=== PATIENT | male | born 1985 | race African-American/Black ===

== ENCOUNTER 2021-08-22 21:56 | Emergency (ER) | payer OTHER ==
--- NOTE | 2021-08-22 22:29 | ED Physician Documentation ---
PD HPI FOCAL NEURO - Stated complaint Stated Complaint: LT SIDE BODY NUMBNESS - Chief complaint Chief Complaint: Neuro - History obtained from History obtained from: Patient - History of Present Illness Timing - onset: Other (episodic for 3 months but became constant for past 3 days) Timing - details: Still present in ED Numbness: Arm, Hand, Leg, Foot, Left Associated symptoms: Back pain. No: Headache, Nausea / vomiting, Seizure, Syncope, Fall, Head injury, Chest pain, Neck pain, Fever Baseline status: positive: A&OX3, ambulatory, indep Recently seen: Not recently seen - Additional information Additional information: c/o LUE and LLE paresthesias. the left leg paresthesias are circumferential from proximal lower leg to toes; the left arm paresthesias are along lateral aspect of the forearm to the left 3rd and 4th fingers. He says he has been having similar episodes over the past three months but they have been self-limited and thus he has not sought medical attention for this but presents tonight due to the symptoms being constant for past 3 days. Denies weakness, denies injury, denies headache. He also notes midline back pain , lower thoracic/upper lumbar area; the back pain has been waxing and waning x 3-4 days. He has had occasional low back pain in the past but he says the location of this back pain is not where he has had previous back pain. Review of Systems Constitutional: reports: Reviewed and negative Eyes: reports: Reviewed and negative Cardiac: reports: Reviewed and negative Respiratory: reports: Reviewed and negative GI: reports: Reviewed and negative : denies: Incontinent, Hematuria Musculoskeletal: reports: Back pain. denies: Neck pain, Extremity pain, Joint pain, Extremity swelling Neurologic: reports: Numbness. denies: Generalized weakness, Focal weakness, Confused, Altered mental status, Headache, Head injury PD PAST MEDICAL HISTORY - Past Medical History Past Medical History: No Neuro: Multiple sclerosis (mother) - Past Surgical History Past Surgical History: No - Present Medications Home Medications: Ambulatory Orders Medication Instructions Recorded Confirmed No Known Home Medications 10/13/13 10/13/13 - Allergies Allergies/Adverse Reactions: Allergies Allergy/AdvReac Type Severity Reaction Status Date / Time No Known Drug Allergies Allergy Verified 08/22/21 22:10 - Social History Does the pt smoke?: No Smoking Status: Never smoker Does the pt drink ETOH?: Yes Does the pt have substance abuse?: No - Immunizations Immunizations are current?: Yes - POLST Patient has POLST: No PD ED PE NORMAL - Vitals Vital signs reviewed: Yes - General General: Alert and oriented X 3, No acute distress, Well developed/nourished - HEENT HEENT: PERRL, EOMI - Cardiac Cardiac: RRR, No murmur - Respiratory Respiratory: No respiratory distress, Clear bilaterally - Abdomen Abdomen: Soft, Non tender - Back Back: No CVA TTP, No spinal TTP - Derm Derm: Normal color, Warm and dry - Extremities Extremities: No edema - Neuro Neuro: Alert and oriented X 3, 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, No motor deficit, Normal speech Results - Vitals Vitals: Oxygen O2 Source Room air - Labs Labs: Laboratory Tests 08/22/21 08/22/21 23:12 23:12 WBC 7.1 RBC 5.18 Hgb 16.1 Hct 47.1 MCV 90.9 MCH 31.1 H MCHC 34.2 RDW 12.1 Plt Count 253 MPV 10.5 Neut # (Auto) 3.1 Lymph # (Auto) 2.9 [place] # (Auto) 0.7 Eos # (Auto) 0.2 Baso # (Auto) 0.1 Absolute Nucleated RBC 0.00 Nucleated RBC % 0.0 Sodium 138 Potassium 3.8 Chloride 103 Carbon Dioxide 26 Anion Gap 9.0 BUN 21 H Creatinine 1.0 Estimated GFR (MDRD) 101 Glucose 107 H Calcium 9.0 Total Bilirubin 0.9 AST 17 ALT 16 Alkaline Phosphatase 63 Total Protein 7.4 Albumin 4.0 Globulin 3.4 Albumin/Globulin Ratio 1.2 Lipase 32 Departure - Departure Disposition: 01 Home, Self Care Clinical Impression: Paresthesia of left arm and leg Condition: Good Instructions: ED Paraesthesias Follow-Up: MARC SANTANA MD [Primary Care Provider] - Comments: The results of tonight's tests have no concerning nor diagnostic findings (blood tests, CT scans of head and neck). Follow up with your primary care provider; further tests might be needed, particularly if your symptoms persist. Discharge Date/Time: 08/23/21 01:51
[2021-08-22 23:19] LABS: BASOPHILS # (AUTO) 0.1 10^3/uL (0.0-0.1); BASOPHILS % (AUTO) 1.1 %; EOSINOPHILS # (AUTO) 0.2 10^3/uL (0.0-0.7); EOSINOPHILS % (AUTO) 3.1 %; HCT - HEMATOCRIT 47.1 % (42.0-52.0); HGB - HEMOGLOBIN 16.1 g/dL (14.0-18.0); LYMPHOCYTES # (AUTO) 2.9 10^3/uL (1.5-3.5); LYMPHOCYTES % (AUTO) 41.6 %; MEAN CORPUSCULAR HEMOGLOBIN 31.1 pg (27.0-31.0); MEAN CORPUSCULAR HGB CONC 34.2 g/dL (32.0-36.0); MEAN CORPUSCULAR VOLUME 90.9 fL (80.0-94.0); MEAN PLATELET VOLUME 10.5 fL (7.4-11.4); MONOCYTES # (AUTO) 0.7 10^3/uL (0.0-1.0); MONOCYTES % (AUTO) 10.4 %; NEUTROPHILS # (AUTO) 3.1 10^3/uL (1.5-6.6); NEUTROPHILS % (AUTO) 43.2 %; PLT - PLATELET COUNT 253 10^3/uL (130-450); RED BLOOD COUNT 5.18 10^6/uL (4.70-6.10); RED CELL DISTRIBUTION WIDTH 12.1 % (12.0-15.0); WHITE BLOOD COUNT 7.1 x10^3/uL (4.8-10.8)
[2021-08-22 23:34] LABS: ALBUMIN/GLOBULIN RATIO 1.2 (1.0-2.2); BILIRUBIN,TOTAL 0.9 mg/dL (0.2-1.0); POTASSIUM 3.8 mmol/L (3.5-5.0); TOTAL PROTEIN 7.4 g/dL (6.7-8.2)
[2021-08-22] MEDS ORDERED: IOPAMIDOL-300 100 ML VIAL ONE (23:41)
[2021-08-23] MEDS ORDERED: IOPAMIDOL-300 100 ML VIAL IVP ONE (00:02)
--- NOTE | 2021-08-23 00:34 | CT Report ---
PROCEDURE: ANGIO HEAD W/WO INDICATIONS: left sided numbness CONTRAST: IV CONTRAST: Isovue 300 ml: 100 PO CONTRAST: *NO PO CONTRAST TECHNIQUE: Precontrast 4.5 mm thick angled axial sections acquired from the foramen magnum to the vertex. Afte r the administration of intravenous contrast, 1 mm thick sections acquired through the [place] of [place] is. Postcontrast 4.5 mm thick sections then re-acquired from the foramen magnum to the vertex. 3-di mensional fardvcj-oufcnftuq-eatpftzhnt (MIP) and/or volume rendering reformats were acquired of the c entral intracranial vasculature. For radiation dose reduction, the following was used: automated ex posure control, adjustment of mA and/or kV according to patient size. COMPARISON: None. FINDINGS: Image quality: Excellent. Anterior circulation: Intracranial internal carotid arteries are normal in size and flow. The flow within the paired anterior cerebral arteries is normal and symmetric. The flow within the middle cer ebral arteries is normal and symmetric. The anterior communicating artery is seen. No aneurysms are seen. Posterior circulation: Visualized portions of the vertebral arteries demonstrate normal caliber, and join to form a normal appearing basilar artery. Flow within the posterior cerebral arteries is norm al and symmetric. No aneurysms are seen. CSF spaces: Ventricles are normal in size and shape. Basal cisterns are patent. No extra-axial flu id collections. Brain: No midline shift. No intracranial bleeds or masses. Millan-white matter interface appears int act. Skull and face: Calvarium and facial bones appear intact, without suspicious lesions. Sinuses: Visualized sinuses and mastoids are clear. IMPRESSION: No aneurysm or embolic disease found. Currently no visualized evidence of mass lesion or acute/subacu te stroke is found. Reviewed by: Artis Jama MD on 08/23/2021 12:36 AM PDT Approved by: Artis Jama MD on 08/23/2021 12:36 AM PDT Station ID: [id number]
--- NOTE | 2021-08-23 00:37 | CT Report ---
PROCEDURE: ANGIO NECK W INDICATIONS: left-sided paresthesias CONTRAST: IV CONTRAST: Isovue 300 ml: 100 PO CONTRAST: *NO PO CONTRAST TECHNIQUE: After the administration of intravenous contrast, 1.5 mm axial sections acquired from the aortic arch to the [place] of [place]. Coronal 3-D maximum intensity projection (MIP) and/or volume rendering ref ormats were then performed. For radiation dose reduction, the following was used: automated exposur e control, adjustment of mA and/or kV according to patient size. COMPARISON: CT angiogram of the head same day reviewed.. FINDINGS: Image quality: Excellent. Carotid system: The great vessels demonstrate a conventional anatomy as they arise from the aortic a rch. The origins of the common carotid arteries appear patent. The common carotid arteries demonstr ate normal calibers and courses. The bifurcation regions appear normal bilaterally. The internal ca rotid arteries demonstrate normal caliber and course. Posterior circulation: The origins of the vertebral arteries appear patent. The more superior porti ons of the vertebral arteries demonstrate normal course and caliber. They join to form a normal appe aring basilar artery. Soft tissues: Visualized neck soft tissues demonstrate no suspicious abnormalities. The thyroid is normal in size and there are no incidental findings. Bones: No suspicious bony lesions. Visualized cervical spine appears normally aligned. IMPRESSION: Through the neck from the aortic arch cephalad no area of aneurysm, dissection or embolic disease is found. No carotid stenosis is identified. The estimate of stenosis included in the report of the imaging study was calculated using the NASCET method CLINICAL RECOMMENDATION STATEMENTS: In patients <35 years with an ITN detected on CT, MRI, or extrathyroidal ultrasound, the Committee re commends further evaluation with dedicated thyroid ultrasound if the nodule is "e1 cm and has no susp icious imaging features, and if the patient has normal life expectancy. In patients "e35 years with an ITN detected on CT, MRI, or extrathyroidal ultrasound, the Committee r ecommends further evaluation with dedicated thyroid ultrasound if the nodule is "e1.5 cm and has no s uspicious imaging features, and if the patient has normal life expectancy. (ACR, 2014) Reviewed by: Artis Jama MD on 08/23/2021 12:39 AM PDT Approved by: Artis Jama MD on 08/23/2021 12:39 AM PDT Station ID: [id number]
[2021-08-23 01:51] VITALS: BP 140/99
--- NOTE | 2021-08-24 08:02 | ED Physician Documentation ---
History of Present Illness - Stated complaint Stated Complaint: LT SIDE BODY NUMBNESS - Chief complaint Chief Complaint: Neuro - History obtained from History obtained from: Patient - History of Present Illness Timing: Other (episodic x 3 months but constant x 3 days) Pain level max: 0 Pain level now: 0 Improved by: no ameliorating factors Worsened by: no exacerbating factors - Additonal information Additional information: c/o LUE and LLE paresthesias. the left leg paresthesias are circumferential from proximal lower leg to toes; the left arm paresthesias are along lateral aspect of the forearm to the left 3rd and 4th fingers. He says he has been having s imilar episodes over the past three months but they have been self-limited and thus he has not sought medical attention for this but presents tonight due to the symptoms being constant for past 3 days. Denies weakness, denies injury, denies headache. He also notes midline back pain , lower thoracic/upper lumbar area; the back pain has been waxing and waning x 3-4 days. He has had occasional low back pain in the past but he says the location of this back pain is not where he has had previous back pain. Review of Systems Constitutional: reports: Reviewed and negative Eyes: reports: Reviewed and negative Cardiac: reports: Reviewed and negative Respiratory: reports: Reviewed and negative GI: reports: Reviewed and negative : denies: Unable to Void, Incontinent, Hematuria Musculoskeletal: reports: Back pain. denies: Neck pain, Extremity pain, Joint pain, Extremity swelling, Joint swelling Neurologic: reports: Numbness. denies: Generalized weakness, Focal weakness, Difficulty speaking, Confused, Altered mental status, Headache, Head injury PD PAST MEDICAL HISTORY - Past Medical History Past Medical History: No - Past Surgical History Past Surgical History: No - Present Medications Home Medications: Ambulatory Orders Medication Instructions Recorded Confirmed No Known Home Medications 10/13/13 10/13/13 - Allergies Allergies/Adverse Reactions: Allergies Allergy/AdvReac Type Severity Reaction Status Date / Time No Known Drug Allergies Allergy Verified 08/22/21 22:10 - Social History Does the pt smoke?: No Smoking Status: Never smoker Does the pt drink ETOH?: Yes Does the pt have substance abuse?: No - Family History Family history: reports: Other (multiple sclerosis (mother)) - Immunizations Immunizations are current?: Yes - POLST Patient has POLST: No PD ED PE NORMAL - Vitals Vital signs reviewed: Yes - General General: Alert and oriented X 3, No acute distress, Well developed/nourished - HEENT HEENT: PERRL, EOMI - Neck Neck: Supple, no meningeal sign, No bony TTP - Cardiac Cardiac: RRR, No murmur - Respiratory Respiratory: No respiratory distress, Clear bilaterally - Abdomen Abdomen: Soft, Non tender - Back Back: No CVA TTP, No spinal TTP - Extremities Extremities: No edema - Neuro Neuro: Alert and oriented X 3, billing typist 2-12 intact, No motor deficit, Normal speech Eye Opening: Spontaneous Motor: Obeys Commands Verbal: Oriented GCS Score: 15 PD ED PE EXPANDED - Neuro Neuro: Normal motor (5/5 bilateral news photographer, flexion and extension (at elbows), bilateral plantar/dorsiflexion), Normal reflexes (2+/4 bilateral patellar DTR without clonus), Abnormal sensation (decreased light touch sensation LUE proximal forearm, predominantly radial aspect; he reports no noticeable difference in LTS right versus left legs/feet) Results - Vitals Vitals: Oxygen O2 Source Room air - Labs Labs: Laboratory Tests 08/22/21 08/22/21 23:12 23:12 WBC 7.1 RBC 5.18 Hgb 16.1 Hct 47.1 MCV 90.9 MCH 31.1 H MCHC 34.2 RDW 12.1 Plt Count 253 MPV 10.5 Neut # (Auto) 3.1 Lymph # (Auto) 2.9 [place] # (Auto) 0.7 Eos # (Auto) 0.2 Baso # (Auto) 0.1 Absolute Nucleated RBC 0.00 Nucleated RBC % 0.0 Sodium 138 Potassium 3.8 Chloride 103 Carbon Dioxide 26 Anion Gap 9.0 BUN 21 H Creatinine 1.0 Estimated GFR (MDRD) 101 Glucose 107 H Calcium 9.0 Total Bilirubin 0.9 AST 17 ALT 16 Alkaline Phosphatase 63 Total Protein 7.4 Albumin 4.0 Globulin 3.4 Albumin/Globulin Ratio 1.2 Lipase 32 - Rads (name of study) CTA head Radiology: Prelim report reviewed, See rad report CTA neck Radiology: Prelim report reviewed, See rad report PD MEDICAL DECISION MAKING - ED course Complexity details: reviewed results, re-evaluated patient, considered differential, d/w patient ED course: left arm and leg paresthesias, intermittent for months but constant x 3 days. Also has had 3 days of lower thoracic/upper lumbar back pain. no abnormalities on blood tests, CTA head and CTA neck. etiology of symptoms is not clear at this time. his back pain is likely incidental, given the involvement of the LUE. Given the lack of other symptoms / signs (such as weakness, fever, cranial nerve involvement), further testing can be considered in outpatient setting. Results d/w patient, advised to seek follow up with his primary care provider even if symptoms improve/resolve, and return precautions discussed. Departure - Departure Disposition: 01 Home, Self Care Clinical Impression: Paresthesia of left arm and leg Condition: Good Instructions: ED Paraesthesias Follow-Up: MARC SANTANA MD [Primary Care Provider] - Comments: The results of tonight's tests have no concerning nor diagnostic findings (blood tests, CT scans of head and neck). Follow up with your primary care provider; further tests might be needed, particularly if your symptoms persist. Discharge Date/Time: 08/23/21 01:51
== END 2021-08-23 01:51 | disposition home or self-care (01) ==
LOC: ED 21:56
DX: R20.2 Paresthesia of skin (principal); M54.6 Pain in thoracic spine
CPT/HCPCS: 36415; 70496; 70498; 80053; 83690; 85025; 99284; Q9967

== ENCOUNTER 2021-09-16 12:46 | Outpatient (CLI) | payer OTHER ==
--- NOTE | 2021-09-17 11:37 | MRI Report ---
PROCEDURE: Shoulder RT W/O INDICATIONS: SHOULDER PAIN TECHNIQUE: Noncontrast oblique coronal T2 fast spin echo with fat saturation, oblique sagittal T1 spin echo and T2 fast spin echo with fat saturation, axial T1 spin echo and T2 fast spin echo with fat saturation t hrough the shoulder. COMPARISON: None. FINDINGS: Image quality: Excellent. Rotator cuff: The supraspinatus, infraspinatus, and subscapularis tendons appear intact throughout. There is mild thickening of the supraspinatus and emphysematous tendons with increased internal signa l compatible with mild tendinosis. No rotator cuff muscle atrophy on sagittal images. Bones and bursae: No bone marrow contusions or fractures. No acromioclavicular joint degeneration. The acromion demonstrates conventional anatomy, without an os acromiale. Fluid noted in the subacrom ial/subdeltoid bursa compatible with mild bursitis. Capsule and soft tissues: In the absence of intra-articular contrast, the glenohumeral ligaments clara ear intact. There is undercutting the superior labrum which could be due to a foramen or superior lab ral tear. The long head of the biceps tendon demonstrates normal location and morphology. The rotato r interval appears normal, without fibrosis. The coracohumeral ligament is normal in thickness. IMPRESSION: Mild supraspinatus and infraspinous tendinopathy Mild subacromial/subdeltoid bursitis. Undercutting of the superior labrum which could be due to labral foramen or superior labral tear. Rec ommend correlation with clinical data. If there is clinical concern for labral tear, consider MRI of the shoulder with benefit of intra-articular gadolinium. Reviewed by: Luz Pace MD, PhD on 09/17/2021 11:36 AM PDT Approved by: Luz Pace MD, PhD on 09/17/2021 11:36 AM PDT Station ID: [id number]
== END 2021-09-16 12:47 | disposition home or self-care (01) ==
LOC: DI 12:46
PROVIDERS: ATTEND Student in an Organized Health Care Education/Training Program
DX: M75.51 Bursitis of right shoulder (principal); M75.91 Shoulder lesion, unspecified, right shoulder

== ENCOUNTER 2021-10-12 07:43 | Outpatient (CLI) | payer OTHER ==
--- NOTE | 2021-10-12 12:36 | MRI Report ---
PROCEDURE: MRI brain without contrast INDICATIONS: POLYNEUROPATHY TECHNIQUE: Noncontrast axial T1 spin echo, axial T2 fast spin echo, sagittal and axial FLAIR, coronal T2 fast sp in echo, axial gradient echo, axial diffusion and ADC through the brain. COMPARISON: None. FINDINGS: Image quality: Excellent. CSF Spaces: Basal cisterns are patent. No extra-axial fluid collections. Ventricles are normal in size and shape. Brain: No intracranial masses or hemorrhage. Millan/white matter interface is normal. Brainstem appe ars normal. Diffusion-weighted images demonstrate no acute ischemic insult. No chronic ischemic ins ults. Normal intravascular flow voids are present. Skull and face: Calvarium has normal marrow signal. Orbits appear normal. Sinuses: 1.5 cm left sphenoid sinus retention cyst. Otherwise, the sinuses and mastoids are clear. IMPRESSION: 1. Normal MRI of the brain 2. Small left sphenoid sinus retention cyst Reviewed by: Berry Mcgill MD on 10/12/2021 11:35 AM MELCHOR Approved by: Berry Mcgill MD on 10/12/2021 11:35 AM MELCHOR Station ID: [id number]
--- NOTE | 2021-10-12 13:12 | MRI Report ---
PROCEDURE: MRI lumbar spine without contrast INDICATIONS: POLYNEUROPATHY TECHNIQUE: Noncontrast sagittal T1 spin echo and T2 fast echo, sagittal STIR, axial T1 and T2 fast spin echo thr ough the lumbar spine. In cases with scoliosis, additional coronal T2 fast spin echo may be performe d. COMPARISON: None. FINDINGS: Image quality: Excellent. Alignment and Curvature: There is normal bony alignment. Bone Marrow: Marrow is of normal overall signal. No acute vertebral body compression fractures. Spinal Cord: Conus medullaris terminates at the L1 level. Visualized cord demonstrates normal signa l and size. Paraspinous Soft Tissues: No paravertebral masses. T12-L1: Normal in appearance. L1-L2: Normal in appearance. L2-L3: Normal in appearance. L3-L4: Normal in appearance. L4-L5: Normal in appearance. L5-S1: Mild disc space narrowing with circumferential disc bulge results in mild central stenosis. Moderate right and mild left foraminal stenosis. IMPRESSION: Mild degenerative L5-S1 disc bulge with mild central stenosis and moderate right foraminal stenosis Reviewed by: Berry Mcgill MD on 10/12/2021 12:11 PM MELCHOR Approved by: Berry Mcgill MD on 10/12/2021 12:11 PM MELCHOR Station ID: [id number]
== END 2021-10-12 07:44 | disposition home or self-care (01) ==
LOC: DI 07:43
PROVIDERS: ATTEND Student in an Organized Health Care Education/Training Program
DX: G62.9 Polyneuropathy, unspecified (principal); J34.1 Cyst and mucocele of nose and nasal sinus; M51.37 Other intervertebral disc degeneration, lumbosacral region; M48.07 Spinal stenosis, lumbosacral region

== ENCOUNTER 2021-12-24 13:01 | Outpatient (CLI) | payer OTHER ==
[2021-12-24 13:49] VITALS: BP 122/78
--- NOTE | 2021-12-24 13:49 | SLEEP CARE CONSULTATION ---
Information from patient questionnaire entered by Lars St. I have reviewed and concur with the information entered by Lars St. This document represents the service I personally performed and the decisions made by me, Samantha Vásquez ARNP. History of Present Illness Service Date and Time: 12/24/2021 1301 Reason for Visit: New patient Chief Complaint: reports: Insomnia, Snoring, Fatigue, Frequent awakenings at night Date of Onset: 3 YEARS Usual bedtime: MIDNIGHT Time it takes to fall asleep: 2HOURS Snores at night: Yes Observed to quit breathing while asleep: Yes Sleeps alone due to snoring: No Number of times waking at night: 2 Reasons for waking at night: reports: Snoring, Pain, Bathroom, Other (NOISE). denies: Choking, Gasping for air Toss, Turn, or Twitch while sleeping: Yes Recalls having dreams: Yes Usually gets out of bed at: 7AM Feels refreshed in the morning: No Morning headache: Yes (2 times a month; RESOLVES IN THE AFTERNOON) Sleepy or fatigued during the day: Yes (takes a lot of unintentional naps, mia when watching TV) Ever fallen asleep while driving: No Takes day naps: No Dreams during day naps: Yes Prior sleep studies: No Additional HPI information: I had the pleasure of seeing DONN WETZEL today regarding the possibility of him having a sleep disorder. His current complaints are snoring, insomnia, fatigue and frequent night awakenings. He states he has trouble falling asleep and staying asleep. He has seen his PCP who sent him to a destination specialist who then recommended a sleep evaluation. He states it takes about 1.5 hrs to fall asleep. He will wake up at least 2 times after falling asleep. He states it feels like his is "waking up every hour". He thinks he is averaging about 4 hours a night of sleep. He does not feel refreshed in the mornings and is tired throughout the day. He has been told that he snores and others have observed pauses in breathing when he is sleeping. - Parasomnia Symptoms Ever been unable to move upon waking from sleep: No Walks in sleep: No Talks in sleep: Yes Ever acted out dreams in sleep: No Ever felt weak in the knees when startled or emotional: Yes Bothered by creepy, crawly, restless sensations in legs: No Problems with memory or concentration: Yes (with both SOMETIMES; "not all the time") Subjective Initial [place] Sleepiness Scale score: 13 (12/10/21) Past Medical History Past Medical History: reports: Anxiety, Depression, Mood disorder (PTSD) Social History The patient's occupation is a [employer]. Patient is Single and lives in . Have you smoked in the past 12 months: Yes Cigarettes per day (20/pack): 20 Quit date: 08/15/21 Alcohol use: Yes Alcohol amount and frequency: 3 drinks on the weekend days Caffeine use: No Family History Family history of sleep disordered breathing: Yes Family Hx Sleep Apnea: Mother: Snoring, Father: Snoring, Sibling: Snoring Allergies and Home Medications Known drug allergies: No Drug allergies reviewed: Yes (NKDA) Home medication list reviewed: Yes Allergy and home medication list: Allergies No Known Drug Allergies Allergy (Verified 08/22/21 22:10) Medications: Welbutrin Propanolol Review of Systems Weight gain over past 5 years: 20 Neurological: reports: headaches. denies: head trauma Psychiatric: reports: anxiety, depression, mood disorder Ear/Nose/Throat: reports: wisdom teeth removed. denies: tonsillectomy Musculoskeletal: reports: back pain Physical Exam Vital signs obtained and entered by: ALEX GARCIA Blood Pressure: 122/78 (LEFT ARM ) Cuff size: regular Heart Rate: 55 O2 Saturation: 98 Height: 5 ft 11 in Weight: 196 lb Body Mass Index: 27.3 BMI Classification: Overweight Neck circumference: 16 (INCHES) Nostrils: patent to airflow Mouth and throat: narrow oropharynx Hard palate: normal Uvula: normal Uvula visualization: 25% Mallampati Class III Tongue: enlarged in size with teeth farris on lateral edges Tonsils: 1+ Neck: normal w/o lymphadenopathy or thyromegaly Heart: regular rate and rhythm Lungs: clear bilaterally Impression and Plan 1. Suspected Obstructive Sleep Apnea-Hypopnea Syndrome, as suggested by a history of loud and irregular snoring, observed cessation of breath while asleep, morning headache, frequent awakening during the night, unrefreshed sleep, cognitive impairment, and excessive daytime sleepiness. Narrow oropharynx and obesity are common predisposing factors for obstructive sleep apnea-hypopnea syndrome. I recommend proceeding to polysomnography to confirm the diagnosis and to assess severity. If the patient has significant sleep disordered breathing, a manual CPAP titration study will also be performed to find the optimal treatment pressure. I informed the patient of what the sleep studies involve and after some discussion, obtained agreement to proceed. The pathophysiology of obstructive sleep apnea-hypopnea syndrome was discussed with the patient and health risks of cardiovascular and cerebrovascular disease if not treated. Risks of drowsy driving discussed in detail and patient advised to avoid long distance driving and to puller machine at the first sign of drowsiness. Patient agreed to plan. * Schedule polysomnography * Avoid long distance driving or driving when feeling sleepy. * Avoid alcohol, sedative and muscle relaxant around bedtime. * Attempt to lose weight. * Review instructions provided by trained office staff on how to prepare for the sleep study. * Return for follow-up after sleep study completed. Counseling Topics: Weight loss health impact Visit Type: In Office Time Spent with Patient (minutes): 30 Provider Statement: I spent 100% of the Face to Face Visit with the patient with greater than 50% spent counseling the patient and coordination of care.
== END 2021-12-24 13:02 | disposition home or self-care (01) ==
LOC: SC 13:01
PROVIDERS: ATTEND Nurse Practitioner Family
DX: R06.83 Snoring (principal); G47.8 Other sleep disorders; R06.81 Apnea, not elsewhere classified; R51.9 Headache, unspecified; G47.10 Hypersomnia, unspecified; R53.83 Other fatigue; F32.A Depression, unspecified; R41.89 Other symptoms and signs involving cognitive functions and awareness; E66.3 Overweight; Z68.27 Body mass index [BMI] 27.0-27.9, adult; Z87.891 Personal history of nicotine dependence
CPT/HCPCS: 99203; 99212

== ENCOUNTER 2022-01-20 20:35 | Outpatient (CLI) | payer OTHER | END 2022-01-20 20:36 | disposition home or self-care (01) | LOC: SC 20:35 | PROVIDERS: ATTEND Nurse Practitioner Family | DX: G47.33 Obstructive sleep apnea (adult) (pediatric) (principal); G47.61 Periodic limb movement disorder | CPT/HCPCS: 95810 ==

== ENCOUNTER 2022-02-03 15:16 | Outpatient (CLI) | payer OTHER ==
--- NOTE | 2022-02-03 15:08 | SLEEP CARE CONSULTATION ---
Information from patient questionnaire entered by Kathi Arciniega. I have reviewed and concur with the information entered by Kathi Arciniega. This document represents the service I personally performed and the decisions made by me, Samantha Vásquez ARNP. History of Present Illness Service Date and Time: 02/03/2022 1440 Initial [place] Sleepiness Scale score: 13 (12/10/21) Current [place] Sleepiness Scale score: 15 (02/03/2022) Additional HPI information: DONN WETZEL returns via video telehealth visit for follow up and results of the recently performed polysomnography. I explained the pathophysiology behind obstructive sleep apnea. We then spent quite a bit of time discussing different treatment options. For mild obstructive sleep apnea, surgery and oral appliance are alternatives to nasal CPAP therapy but in moderate or severe cases, nasal CPAP is the most effective and reliable treatment. Because apnea is primarily in supine position, then positional management therapy could be effective. Methods discussed such as positioning with pillows to prevent supine sleep. I reviewed the impact of weight changes on sleep apnea and strongly recommended losing weight. After some discussion, the patient opted to go with the nasal CPAP therapy. Nasal autoCPAP set at 4-15 cmH20 will be ordered with rationale explained. A manual titration study will be ordered if unable to find optimal pressure with office adjustments. I explained how CPAP machine works and what to expect when using the machine. Using CPAP every night in order to get used to it was emphasized. Patient advised to put CPAP mask on before getting into bed so as not to fall asleep without CPAP. To assist acclimation to CPAP use, it could also be used for a short time during day while reading or watching TV. The patient was instructed to call the CPAP supplier to discuss any mechanical problem that may occur. If the mask given is uncomfortable or is difficult to keep on through the night even with adjustment, contact the CPAP supplier as many will replace with another mask style if notified before 30 days. If snoring or perceives is not getting enough air or too much air from the machine, notify this office. Patient does not drink alcohol. Patient was cautioned about risks of drowsy driving until sleepiness symptoms resolve. Patient denies drowsy driving. Sleep Study - Results Type of Sleep Study: Polysomnography (COMPLETED 01/20/2022) Prior sleep studies: No Polysomnography/Home Sleep Study results: IMPRESSION: The quality of the study is good. The patient had normal sleep efficiency. Despite moderate sleep fragmentation, the sleep architecture was also normal. Respiratory monitoring showed mild obstructive sleep apneahypopnea (AHI = 10.3) associated with frequent arousals, oxyhemoglobin desaturation and no significant hypoxia (shruthi oxygen saturation of 91%). The respiratory events occurred almost exclusively during supine sleep (supine AHI = 25.5; non-supine = 1.41). Snore was light to loud in intensity. There was mild periodic leg movement of sleep contributing to the sleep fragmentation. Cardiac rhythm was normal sinus rhythm without significant arrhythmia. No abnormal behavior (parasomnia) observed during the night. Allergies and Home Medications Drug allergies reviewed: Yes (NKDA) Home medication list reviewed: Yes (no changes) Review of Systems Review of systems same as previous: Yes (no changes) Physical Exam Vital signs obtained and entered by: VIA phone Height: 5 ft 11 in Weight: 185 lb (per pt ) Body Mass Index: 25.7 BMI Classification: Overweight Impression and Plan 1. Obstructive Sleep Apnea-Hypopnea Syndrome, mild, with lowest oxygen saturation of 91%. Obviously this is the cause of the patients symptoms of unrefreshed sleep, and excessive daytime sleepiness. Positive pressure therapy could benefit anxiety, depression and mood disorder (PTSD). As mentioned above, the patient will be started on nasal autoCPAP therapy with pressure set at 4-15 cmH2O. Compliance guidelines also reviewed. A copy of compliance guidelines will be given for reference at check out. Because the apnea is more severe supine, I instructed to avoid sleeping supine using pillow positioning until able to start CPAP use. 2. Periodic limb movement, mild, that did not fragment patients sleep. Periodic limb movement of sleep (PLMS) is characterized by episodes of repetitive limb movements that occur during sleep and usually involve the lower limbs. The etiology is unknown. Caffeine can aggravate PLMS and should be avoided. Sleep hygiene methods can also improve sleep as well as lifestyle changes such as regular exercise. Patient was advised that no treatment is needed at this time. If symptoms increase, then further evaluation is indicated. * Nasal auto CPAP therapy, pressure at 4-15 cm H2O. * Attempt to lose weight. * Avoid alcohol consumption near bedtime. * Avoid supine sleep until using CPAP. * The patient is again cautioned about driving until sleepiness completely resolves. * Return one month after CPAP obtained. I will assess response to therapy and compliance at that time. Counseling Topics: Weight loss health impact Visit Type: Telehealth Video Video Type: [facility] Patient Location: [place] Location of Provider: Office Patient agrees and consents to this telehealth visit type: Yes Patient agrees to have their insurance billed: Yes Time Spent with Patient (minutes): 16 Provider Statement: I spent 100% of the Telehealth Video Call with the patient with greater than 50% spent counseling the patient and coordination of care.
== END 2022-02-03 15:17 | disposition home or self-care (01) ==
LOC: SC 15:16
PROVIDERS: ATTEND Nurse Practitioner Family
DX: G47.33 Obstructive sleep apnea (adult) (pediatric) (principal); G47.61 Periodic limb movement disorder

== ENCOUNTER 2022-04-20 11:12 | Outpatient (CLI) | payer OTHER ==
--- NOTE | 2022-04-20 10:01 | SLEEP CARE CONSULTATION ---
Information from patient questionnaire entered by Kathi Arciniega. I have reviewed and concur with the information entered by Kathi Arciniega. This document represents the service I personally performed and the decisions made by , Samantha Vásquez ARNP. History of Present Illness Service Date and Time: 04/20/2022 1000 Previous diagnosis: Mild, Obstructive Sleep Apnea-Hypopnea Syndrome AHI: 10.3 (in 2021) Reason for follow up: first compliance Equipment type: CPAP (RESMED AIRSENSE 11) Equipment obtained from: [facility] (getting supplies) Mask style: Nasal (over the nose) Backup mask available: Yes (other mask) Last cushion change: 1 month + Prior sleep studies: No Type of Sleep Study: Polysomnography (COMPLETED 01/20/2022) HPI additional information: DONN WETZEL was diagnosed to have mild, AHI 10.3, obstructive sleep apnea- hypopnea syndrome and returns via video telehealth visit today for CPAP therapy first compliance follow-up. Sleep Study - Results Type of Sleep Study: Polysomnography (COMPLETED 01/20/2022) Prior sleep studies: No CPAP Compliance Data - Data Reviewed with Patient Average duration of nightly device use: 4 hours 25 mins Compliance rate %: 37 (/30 days used) Current pressure setting (cmH2O): 4-15 (median 5.7, avg 8.4, max 9.3) Average residual AHI: 0.1 Central apnea: 0.0 Obstructive apnea: 0.1 Subjective Missed days of use due to: reports: travel (forgot to take when he traveled) Patient concerns: denies: aerophagia, mask discomfort, air blowing in eyes, mask leak noise, condensation in mask/hose, nasal congestion, dry mouth, nose, throat, epistaxis Observed to snore while using device: No Current pressure setting perceived as: comfortable On therapy, patient: reports: sleeping better, awakening more refreshed, being more awake and alert during the day, more rested overall. denies: drowsiness while driving Initial [place] Sleepiness Scale score: 13 (12/10/21) Current [place] Sleepiness Scale score: 9 (04/20/22) Allergies and Home Medications Drug allergies reviewed: Yes (NKDA) Home medication list reviewed: Yes (no changes) Review of Systems Review of systems same as previous: Yes (no changes) Physical Exam Vital signs obtained and entered by: VIA PHONE Height: 5 ft 11 in (PER PT ) Weight: 170 lb (PER PT ) Body Mass Index: 23.7 BMI Classification: Normal Impression and Plan 1. Obstructive Sleep Apnea-Hypopnea Syndrome, mild, with fair treatment compliance and good apnea control. On CPAP therapy, the patient has better sleep quality and is more rested overall. Patient has been doing well and able to keep the mask on when he uses it. He traveled for the holidays and forgot to pack it so he did not use it for the last 2 weeks. He states he is getting used to it and is becoming more comfortable. He will continue to try and use his CPAP starting tonight. I will follow-up with him in 1 to 2 months to recheck compliance. The patients pressure will be changed to autoCPAP 5-9 cmH20 to reflect pressure being used. Patient advised to contact me if pressure change is uncomfortable so that it can be adjusted. Goals for apnea control discussed.Patient's apnea severity and rationale for treatment to reduce apnea, improve sleep quality and reduce cardiovascular and cerebrovascular events was reviewed. I also reviewed the benefit of consistent device use of CPAP for depression, anxiety and mood disorder (PTSD). * Change auto CPAP pressure to 5-9 cmH2O * Notify me if snoring with mask or feeling that the pressure is too much or too little * Maintain a healthy weight * Call this office if any problems using CPAP * Return for follow up in 1-2 months, or sooner if concerns arise Counseling Topics: Spare mask, Weight control Visit Type: Telehealth Video Video Type: [facility] Patient Location: Work Location of Provider: Office Patient agrees and consents to this telehealth visit type: Yes Patient agrees to have their insurance billed: Yes Time Spent with Patient (minutes): 12 Provider Statement: I spent 100% of the Telehealth Video Call with the patient with greater than 50% spent counseling the patient and coordination of care.
== END 2022-04-20 11:13 | disposition home or self-care (01) ==
LOC: SC 11:12
PROVIDERS: ATTEND Nurse Practitioner Family
DX: G47.33 Obstructive sleep apnea (adult) (pediatric) (principal)